=== PATIENT | female | born 1965 | race Caucasian/White ===

== ENCOUNTER 2019-07-10 10:08 | Observation (INO) | payer MEDICARE, MEDICAID ==
[~2019-07-10] VITALS: Ht 165.1 cm; Wt 78.1 kg
[2019-07-10] MEDS: KETOROLAC 30 MG/1 ML IM SCH ×3 (07:00→23:37)
[2019-07-10] MEDS: CARBAMAZEPINE 200 MG TABLET PO SCH ×2 (09:00→23:33)
[2019-07-10] MEDS: PAROXETINE 10 MG TABLET PO SCH (09:00)
[2019-07-10] MEDS: DOCUSATE 100 MG CAPSULE PO SCH ×2 (09:00→23:33)
[2019-07-10] MEDS: AMLODIPINE 10 MG TAB PO SCH (09:00)
[2019-07-10] MEDS: LISINOPRIL 20 MG TABLET PO SCH (09:00)
[2019-07-10] MEDS: GABAPENTIN 300 MG CAPSULE PO SCH ×2 (09:00→23:33)
[2019-07-10] MEDS: BUSPIRONE 10 MG TABLET PO SCH ×3 (09:00→23:32)
[~2019-07-10 10:08] MED LIST: ACETAMINOPHEN 650 MG/20.3 ML UDC PO PRN; AMLO10TA8 PO; ASPI81TA45 PO; BISACODYL 10 MG SUPP PR PRN; BUSP10TA PO; CARB200T PO; DIPHENHYDRAMINE 25 MG CAPSULE PO PRN; EPINEPHRINE 1 MG/ML, 1ML ONE; GABA600T7 PO; HYDR2TAB29 PO; HYDROmorphone 1 MG/ML, 1ML INJ IV PRN; KETOROLAC 60 MG/2 ML ONE; LISI-170 PO; MAGNESIUM HYDROXIDE 8%, 30ML UDC PO PRN; MELO7.5T31 PO; MORP-52 PO; MULT-658 PO; ONDANSETRON 2MG/ML, 2ML IV PRN; ONDANSETRON 4 MG TABLET PO PRN; OXYC-307 PO; OXYC5CAP2 PO; PARO30TA45 PO; PLEASE ENTER HEIGHT AND WEIGHT MC SCH; ROPIvacaine/PF 0.5%, 20 ML ONE; ROPIvacaine/PF 0.5%, 30 ML ONE; SENNA/DOCUSATE TABLET PO PRN; SODIUM CHLORIDE 0.9% 50 ML ONE; TRAM50TA2 PO; TRANEXAMIC ACID 100 MG/ML, 10ML ONE; VANCOMYCIN 1,000 MG ONE; ZOLPIDEM 5MG TABLET PO PRN
[2019-07-10 10:41] VITALS: BP 190/92
[2019-07-10] MEDS ORDERED: FENTANYL PF 250 MCG/5ML ONE (10:42)
[2019-07-10] MEDS ORDERED: MIDAZOLAM 1 MG/ML, 2ML ONE (10:42)
[2019-07-10] MEDS ORDERED: OXYC-302 PO (10:52)
[2019-07-10] MEDS ORDERED: BUPR-86 PO (10:52)
[2019-07-10] MEDS ORDERED: BUSP30TA PO (10:52)
[2019-07-10] MEDS ORDERED: CARB200T2 PO (10:52)
[2019-07-10] MEDS ORDERED: BUPR150T73 PO (10:52)
[2019-07-10] MEDS ORDERED: IBUP-1223 PO (10:52)
[2019-07-10] MEDS ORDERED: PARO30TA45 PO (10:52)
[2019-07-10] MEDS ORDERED: METH5TAB2 PO (10:52)
[2019-07-10] MEDS ORDERED: GABA600T7 PO (10:52)
[2019-07-10] MEDS ORDERED: LACTATED RINGERS 1,000 ML IV ONE (10:56)
[2019-07-10] MEDS ORDERED: ACETAMINOPHEN 500 MG TABLET PO STA (10:56)
[2019-07-10] MEDS ORDERED: LACTATED RINGERS 1,000 ML IV STA (10:56)
[2019-07-10] MEDS ORDERED: GABAPENTIN 300 MG CAPSULE PO STA (10:56)
[2019-07-10] MEDS ORDERED: ACETAMINOPHEN 500 MG TABLET ONE (11:04)
[2019-07-10] MEDS ORDERED: GABAPENTIN 300 MG CAPSULE ONE (11:04)
[2019-07-10] MEDS ORDERED: ROPIvacaine/PF 0.2%, 100ML 550 ML (check volume) INJ ONE (12:00)
[2019-07-10] MEDS ORDERED: hydrALAzine 20 MG/ML, 1ML ONE ×2 (12:40→13:22)
[2019-07-10] MEDS ORDERED: CEFAZOLIN 1,000 MG ONE (12:40)
[2019-07-10] MEDS ORDERED: LIDOCAINE-MPF 2% ,5ML ONE (12:40)
[2019-07-10] MEDS ORDERED: SUCCINYLCHOLINE 20 MG/ML, 10ML ONE (12:40)
[2019-07-10] MEDS ORDERED: PROPOFOL 10 MG/ML, 20ML ONE (12:40)
[2019-07-10] MEDS ORDERED: ONDANSETRON 2MG/ML, 2ML ONE (12:40)
[2019-07-10] MEDS ORDERED: BUPIVACAINE/PF 0.25% ONE (12:40)
[2019-07-10] MEDS ORDERED: DEXAMETHASONE 4 MG/ML, 1ML ONE (12:40)
[2019-07-10] MEDS ORDERED: OXYcodone 5 MG/5 ML ORAL.SOL UDC PO PRN (13:00)
[2019-07-10] MEDS ORDERED: MIDAZOLAM 1 MG/ML, 5ML IV PRN (13:00)
[2019-07-10] MEDS ORDERED: MEPERIDINE/PF 25MG/ML,1ML IVPush PRN (13:00)
[2019-07-10] MEDS ORDERED: PROMETHAZINE 25 MG/ML, 1ML IV PRN (13:00)
[2019-07-10] MEDS ORDERED: LABETALOL 5MG/ML, 20ML IV PRN (13:00)
[2019-07-10] MEDS ORDERED: ALBUTEROL/IPRATROPIUM 2.5MG/0.5MG, 3 ML NPPB PRN (13:00)
[2019-07-10] MEDS ORDERED: hydrALAzine 20 MG/ML, 1ML IV PRN (13:00)
[2019-07-10] MEDS ORDERED: HYDROmorphone 2 MG/ML, 1ML ONE (13:22)
[2019-07-10] MEDS ORDERED: FENTANYL PF 100 MCG/2ML ONE (13:22)
[2019-07-10] MEDS ORDERED: LABETALOL 5MG/ML, 20ML ONE (13:22)
[2019-07-10] MEDS: FENTANYL PF 100 MCG/2ML IV PRN ×2 (13:25→13:55)
[2019-07-10] MEDS: HYDROmorphone 2 MG/ML, 1ML IVPush PRN ×2 (13:27→13:37)
[2019-07-10] MEDS ORDERED: HYDROmorphone 1 MG/ML, 1ML INJ IVPush PRN (14:11)
[2019-07-10 15:30] VITALS: BP 132/74
[2019-07-10] MEDS: METHADONE 5 MG TABLET PO SCH ×2 (18:06→23:32)
[2019-07-10] MEDS: NS + 20MEQ KCL 1,000 ML IV SCH (18:06)
[2019-07-10] MEDS: ASPIRIN 81 MG TABLET EC PO SCH (18:06)
[2019-07-10 19:06] VITALS: BP 136/70
[2019-07-10] MEDS: CEFAZOLIN PMX 2GM/50ML 50 ML IVPB SCH (21:44)
[2019-07-10] MEDS: OXYcodone IR 5MG TABLET PO PRN (23:33)
[2019-07-11 00:21] VITALS: BP 124/62
[2019-07-11] MEDS: KETOROLAC 30 MG/1 ML IM SCH (02:15)
[2019-07-11] MEDS: OXYcodone IR 5MG TABLET PO PRN ×2 (02:18→08:06)
[2019-07-11] MEDS ORDERED: DEXAMETHASONE 4 MG/ML, 1ML IVPush SCH (06:00)
[2019-07-11] MEDS: NS + 20MEQ KCL 1,000 ML IV SCH (06:00)
[2019-07-11] MEDS: CEFAZOLIN PMX 2GM/50ML 50 ML IVPB SCH (06:20)
[2019-07-11] MEDS: ASPIRIN 81 MG TABLET EC PO SCH (06:21)
[2019-07-11 07:37] VITALS: BP 124/66
[2019-07-11] MEDS: GABAPENTIN 300 MG CAPSULE PO SCH (08:00)
[2019-07-11] MEDS ORDERED: FLU VACC QS2019-20 36MOS UP/PF 0.5 ML IM-VACC ONE (08:00)
[2019-07-11] MEDS: LISINOPRIL 20 MG TABLET PO SCH (08:01)
[2019-07-11] MEDS: PAROXETINE 10 MG TABLET PO SCH (08:01)
[2019-07-11] MEDS: BUSPIRONE 10 MG TABLET PO SCH (08:01)
[2019-07-11] MEDS: AMLODIPINE 10 MG TAB PO SCH (08:03)
[2019-07-11] MEDS: DOCUSATE 100 MG CAPSULE PO SCH (08:05)
[2019-07-11] MEDS: METHADONE 5 MG TABLET PO SCH (08:05)
[2019-07-11] MEDS: CARBAMAZEPINE 200 MG TABLET PO SCH (08:24)
[2019-07-11] MEDS ORDERED: OXYC-302 PO (08:27)
[2019-07-11] MEDS ORDERED: MELO7.5T31 PO (08:30)
== END 2019-07-11 10:24 | disposition home or self-care (01) ==
LOC: OUT 10:08 → 4NE 15:25 → OUT 23:37 → 4NE 23:37 → DCLOUNGE 07-11 10:12
PROVIDERS: ADMIT Orthopaedic Surgery; ATTEND Orthopaedic Surgery
DX: M17.11 Unilateral primary osteoarthritis, right knee (principal); J44.9 Chronic obstructive pulmonary disease, unspecified; I10 Essential (primary) hypertension; F11.20 Opioid dependence, uncomplicated; M53.9 Dorsopathy, unspecified; L94.8 Other specified localized connective tissue disorders; F17.210 Nicotine dependence, cigarettes, uncomplicated; Z79.899 Other long term (current) drug therapy; Z88.5 Allergy status to narcotic agent; Z23 Encounter for immunization
CPT/HCPCS: 27447; 36415; 85014; 85018; 90686; 96365; 96366; 96372; 96375; 97110; 97161; C1713; C1776; G0008; G0378; J0171; J0330; J0690; J1100; J1170; J1885; J2250; J2405; J2704; J2795; J3010; J3370; J3480; J3490; J7120; J0360